=== PATIENT | male | born 2000 | race Caucasian/White ===

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

== ENCOUNTER 2021-08-29 22:43 | Emergency (ER) | payer MEDICAID, SELFPAY | END 2021-08-30 01:24 | disposition left against medical advice (07) | PROVIDERS: Emergency Provider Emergency Medicine | DX: S99.919A Unspecified injury of unspecified ankle, initial encounter (principal); X58.XXXA Exposure to other specified factors, initial encounter; Y93.9 Activity, unspecified; Y92.9 Unspecified place or not applicable; Y99.9 Unspecified external cause status ==